=== PATIENT | female | born 1955 | race Caucasian/White ===

== ENCOUNTER 2017-02-01 12:48 | Inpatient (IN) | payer MEDICAID ==
[~2017-02-01] VITALS: Ht 160 cm; Wt 71.3 kg
[2017-02-01] VITALS (12 sets, daily range): BP systolic 73–133; BP diastolic 35–66
[~2017-02-01 12:48] MED LIST: ABILIFY5 MG PO; ACETAMINOPHEN PO; ALBUTEROL2.5 MG/NEB INH; AVPAK AZITHROM250 MG PO; BACTRIM DS 8001 TA1 PO; CARVEDILOL 1212.5 MG PO; CELEXA40 M1 PO; CITALOPRAM20 MG PO; CLINDAMYCIN HC300 MG PO; CLONAZEPAM 1MG T1 MG PO; COZAAR100 MG PO; DIFLUCAN 200MG200 MG PO; DOCUSATE SODIU100 MG PO; FSBS; FSBS SC; FUROSEMIDE 20MG20 MG PO; GABAPENTIN300 MG PO; GLUCAGON EMERGEN1 M1 IJ; GLUTOSE 1515 GM PO; GLUTOSE 1540% PO; HUMULIN 70100 UNITS/ SC; HYDROCHLOROTHIA25 M1 PO; HYDROCODONE1 TABLET PO; HYPOTEARS 15 ML15 M1 OP; IBUPROFEN 600M600 MG PO; INSULIN RE100 UNITS/ SC; LACTULOSE10 GM/15 M PO; LANTUS INS100 UNITS/ SC; LASIX20 MG PO; LEVOTHYROXIN0.025 M3 PO; LOPERAMIDE2 MG PO; LORATADINE 10MG10 M1 PO; LORTAB 500 MG-11 TAB PO; METOPROLOL 25 M25 MG PO; NAPROSYN500 M1 PO; NATURAL VITAM1000 MG PO; NORCO 325 MG-51 TAB PO; NOVOLIN 70/30 710 ML SC; PERCOCET 5/3251 EACH PO; PHENERGAN 25MG.25 M1 PO; PRAVACHOL 40MG40 MG PO; PRAVASTATIN 40M40 MG PO; PREDNISONE 20MG20 MG PO; PREMARIN0.625 MG PO; PRILOSEC20 M1 PO; PRILOSEC20 MG PO; PROAIR HFA0.09 MG/AC IH; PROMETHAZINE HC25 M1 PO; RANITIDINE HCL150 MG PO; RELION NOVOL100 U/M1 IJ; RISPERIDONE0.5 MG PO; ROBAFEN DM COU118 ML PO; ROBAFEN DM473 ML PO; ROBAFEN100 MG/5 M PO; ROBITUSSIN120 ML/BOT PO; SYMBICORT1 AE1 IH; TESSALON PERLE100 MG PO; THERAPEUTIC-M1 TAB PO; TOBRAMYCIN80 MG/2 ML IV; TOPROL XL 25MG25 MG PO; TRAMADOL 50MG T50 M1 PO; TRAZODONE150 MG PO; TYLENOL ES500 M1 PO; VANCOMYCIN 101000 MG IV; VIBRAMYCIN 100100 MG PO; VITAMIN C500 M1 PO; ZITHROMAX Z-PA250 M1 PO; [UNRECOGNIZED DRUG - OTHER] PO
--- NOTE | 2017-02-01 13:14 | Emergency Room Report ---
History of Present Illness Time Seen by [id number] Presenting Problem in Triage Pt arrived: Presenting Problem: Onset of symptoms date/time:/ or onset unknown for: Treatment Prior to Arrival: MATH INTERVENTIONIST Provided by: Sepsis Risk Assessment: Temp: B/P: MAP: Pulse: Resp: Recent fever? Clinical Suspician of Infection? Mental Status: Sepsis Risk: Have you (or family members/close friends) recently traveled outside the [place]? If Yes, where/when: Have you had exposure to infectious disease within the past month? TB? Other? Specify: Source patient, RN notes reviewed Exam Limitations no limitations Comment Pt a resident at [facility] and found obtunded this morning with O2 Sat of 80% . EMS called to transport to ED and pt started on a NRB. In the ED she is obtunded and grunting respirations and not responsive to verbal or tactile stimuli at all. She is running a fever and sound severely congested in both lungs but R>L. She is currently tachypneic,Hypotensive and obtunded but O2 Sat is 99% on NRB. According to her [place] records, she is a DNR and family on their way here. We are doing a septic workup and starting IVF's and Antibiotics now Cardiac Chest Pain Chest pain indicative of cardiac No ALLERGIES Coded Allergies: clarithromycin (Mild, 01/07/16) levofloxacin (Mild, 01/07/16) Influenza Virus Vaccines (-- 01/07/16) egg (01/07/16) Home Medications Reported Medications Lactulose (Lactulose) 20 GM PO DAILYP PRN CONSTIPATION TRAMADOL HCL (Tramadol) 50 MG PO 1600,2100 PRN PAIN INSUL REG 30%ISOPHAN 70% HUMAN (Humulin 70-30 Vial) 5 UNITS SC BID Trazodone Hcl (Trazodone HCl) 150 MG PO QHS ALBUTEROL (Albuterol 0.083% Neb) 2.5 MG INH Q6HP PRN BREATHING Glucagon,Human Recombinant (Glucagon Emergency Kit) 1 MG IJ PRN PRN HYPOGLYCEMIA Citalopram Hydrobromide (Celexa) 40 MG PO QHS Docusate Sodium 250 MG PO QOD OMEPRAZOLE MAGNESIUM (Prilosec 20MG) 20 MG PO BID BUDESONIDE/FORMOTEROL FUMARATE (Symbicort 160-4.5 Mcg Inhaler) 1 PUFF IH BID Ascorbic Acid (Vitamin C) 1,000 MG PO DAILY Dextrose (Glutose 15) 15 GM PO PRN PRN HYPOGLYCEMIA GUAIFENESIN/DEXTROMETHORPHAN (Robafen Dm Cough Liquid) 10 ML PO Q6HP PRN COUGH TRAMADOL HCL (Tramadol) 50 MG PO Q6HP PRN PAIN INSULIN REGULAR, HUMAN (Novolin R) 2 IJ PRN PRN DIABETES Albuterol Sulfate (Proair Hfa) 2 PUFF IH QIDP Clonazepam (Clonazepam 1MG) 0.5 MG PO QHS Aripiprazole (Abilify) 5 MG PO DAILY Gabapentin (Gabapentin 300MG) 300 MG PO TID Carvedilol (Carvedilol 12.5MG) 12.5 MG PO BID MULTIVIT,THER IRON,CA,FA & MIN (Sm Therapeutic M Tablet) 1 TAB PO DAILY LOPERAMIDE HCL (Loperamide) 2 MG PO Q3HP PRN DIARRHEA PROMETHAZINE HCL (Promethazine 25mg Tab) 25 MG PO Q4HP PRN NAUSEA AND VOMITING Acetaminophen (Tylenol Extra-Strength) 500 MG PO QHS PRAVASTATIN SODIUM (Pravastatin Sodium) 40 MG PO QHS LEVOTHYROXINE SOD (Levothyroxine 0.025MG) 0.025 MG PO DAILY History Medical History General CAD? No Angina: Yes [place]: No Hypertension? Yes Hyperlipidemia? Yes CHF? Yes DVT? No PE? No COPD? Yes Asthma? Yes Anemia? No GERD? No Gastric ulcers? No GI Bleed? No Hernia? No Thyroid Problems? No Hypothyroidism? No CVA? Yes Seizures? No Diabetes? Yes Insulin Dependent: No Insulin Pump: No Home FSBS? Yes Renal Insuffiency? No End Stage Renal Disease? No UTI? Yes Stones? Yes BPH? No GB Disease: No Nephritic Syndrome? No Asplenia? No Hepatitis? No Sickle Cell Disease? No Arthritis? No Migraines? No Cataracts? No Glaucoma? No MRSA? No HIV? No TB? No Anxiety? No Depression? No Cancer? Yes Site: CERVIX More? No Immunization Hx DT/Tetanus Unknown Flu Refused Pneumonia Unknown Surgical Hx Previous Surgery?Y FOOT SURGERY [LEFT] TUBAL LIGATION HYSTERECTOMY HIP SURGERY R RIGHT LEG SURGERY Family History Family Hx Diabetes Yes CAD Yes Hypertension Yes Hyperlipidemia Yes Cancer Yes TB No Social History Smoking Hx Packs/day 1 1/2 - 2 Packs Alcohol Alcohol: No Review of Systems All Other Systems Reviewed and Negative Constitutional see HPI Respiratory see HPI Cardiovascular see HPI Psychiatric/Neurological see HPI Physical Exam Vital Signs Vital Signs Date Time Temp Pulse Resp B/P Pulse O2 O2 Flow FiO2 Ox Delivery Rate 02/01 1406 95 25 86/39 100 02/01 1339 93 25 81/74 100 02/01 1328 96 26 80/36 100 02/01 1300 40 02/01 1249 100.0 100 36 85/66 98 15 General Appearance severe distress Eye Exam - bilateral eye PERRL Ear, Nose, Throat normal ENT inspection Neck supple Respiratory Status Yes: respiratory distress. Lung Sounds bilateral: rales, rhonchi, wheezing. Cardiovascular regular rate/rhythm Peripheral Pulses Pulses normal No (very weak) Neurologic obtunded Medical Decision Making LABS/Meds/Orders Pt receiving controlled substance in ED? No Results/Orders Laboratory Tests 02/01/17 1309: Lactic Acid 4.5 H 02/01/17 1309: Sodium 125 L, Potassium 7.8 *H, Chloride 84 L, Carbon Dioxide 11 L, BUN 50 H , Creatinine 3.0 H, Estimated Creat Clear 21 L, Estimated GFR (MDRD) 16 *L, Glucose 1257 *H, Calcium 8.1 L, Total Bilirubin 0.7, AST 18, ALT 19, Alkaline Phosphatase 214 H, Creatine Kinase 25 L, CK-MB (CK-2) Rel Index 2.0, CK and CKMB Interp < 0.5, Troponin I < 0.02, Total Protein 6.2 L, Albumin 2.2 L, Globulin 4.0 H, Albumin/Globulin Ratio 0.6 L, WBC 14.8 H, RBC 3.00 L, Hgb 9.3 L, Hct 35.2 L, MCV 117.3 H, RDW 13.7, Plt Count 483 H, MPV 8.2, Gran % 93.2 H, Gran # 13.8 H, Total Counted Pending, Lymphocytes % 4.4 L, Monocytes % 2.0, Eosinophils % 0.1, Basophils % 0.4, Neutrophils Pending, Lymphocytes ( Manual) Pending, Lymphocytes # 0.7, Monocytes # 0.3, Eosinophils # 0.0, Basophils # 0.1, Platelet Estimate Pending, PUBS MCHC 26.2 L, MCH 30.7 02/01/17 1307: Lactic Acid Cancelled 02/01/17 1300: Urine Color YELLOW, Urine Appearance SL CLOUDY, Urine pH 6.0, Ur Specific [place] <= 1.005, Urine Protein NEGATIVE, Urine Ketones 3+ H, Urine Blood 1+ H , Urine Nitrate NEGATIVE, Urine Bilirubin NEGATIVE, Urine Urobilinogen 0.2, Ur Leukocyte Esterase 2+ H, Urine RBC OCC, Urine WBC 10-20, Ur Squamous Epith Cells 5-10, Urine Renal Cells 10-20, Urine Bacteria 4+, Urine Glucose 3+ H 02/01/17 1255: ABG pH 7.16 *L, ABG pCO2 (Temp Corrct 20.5 L, ABG pO2 (Temp Correct 142.7 H, ABG HCO3 7.1 L, ABG Total CO2 7.7 L, ABG O2 Sat (Calculated) 98, ABG Base Excess -21.7 L, Ian Test NON APPLICABLE, Blood Gas Comments RIGHT FEMORAL Current Medication Orders Sig/Teresa Start time Last Medication Dose Route Stop Time Status Admin Insulin Human Regular 100 UNITS .Q10H 02/01 1415 AC Sodium Chloride 100 ML IV Insulin Human Regular 10 UNITS ONCE ONE 02/01 1415 AC IVP 02/01 1416 Insulin Human Regular 0 .STK-MED ONE 02/01 1407 DC .ROUTE Sodium Chloride 50 ML .STK-MED ONE 02/01 1337 DC IV Sodium Chloride 50 ML .STK-MED ONE 02/01 1336 DC IV Piperacillin Sod/ 0 .STK-MED ONE 02/01 1335 DCr Tazobactam Sod .ROUTE Miscellaneous 1 EACH CONSULT PHARMACY 02/01 1315 AC Information * 02/02 0115 Piperacillin Sod/ 3.375 GM ONCE ONE 02/01 1315 DCr 02/01 Tazobactam Sod IV 02/01 1344 1344 Sodium Chloride 50 ML Sodium Chloride 1,000 ML .Q1H1M 02/01 1315 CAN IV 02/01 1415 Sodium Chloride 10 ML PRN PRN 02/01 1315 DC IV 02/02 1306 Sodium Chloride 1,000 ML .Q1H1M 02/01 1315 AC 02/01 IV 02/01 1415 1330 Sodium Chloride 10 ML PRN PRN 02/01 1315 AC IV 02/02 1306 Sodium Chloride 1,000 ML .Q1H1M 02/01 1315 AC /12 IV 02/01 1415 1330 Sodium Chloride 10 ML PRN PRN 02/01 1315 AC IV 02/02 1307 Sodium Chloride 1,000 ML .Q1H1M 02/01 1315 AC 05/12 IV 02/01 1415 1330 Sodium Chloride 10 ML PRN PRN 02/01 1315 AC IV 02/02 1308 Sodium Chloride 10 ML PRN PRN 02/01 1300 AC IV 02/02 1256 Orders Procedure Date/time Status BIPAP-INITIAL SETUP 02/01 1404 Complete RT BIPAP, Initial Setup/Change 02/01 1404 Active RT BIPAP, Monitor/Maintain 02/01 1404 Active LACTIC ACID FOLLOW UP 02/01 1346 Active DIFFERENTIAL-WBC 02/01 1309 Active ARTERIAL BLOOD GAS REQUEST 02/01 1307 Active IV SALINE LOCK 02/01 1307 Active CULTURE, BLOOD 02/01 1307 Active CULTURE, BLOOD 02/01 1305 Active CHEST-PORTABLE 02/01 1304 Active IV SALINE LOCK 02/01 1304 Active URINALYSIS/COMPLETE 02/01 1304 Complete LACTIC ACID 02/01 1304 Complete CBC WITH AUTO DIFF 02/01 1304 Active CARDIAC ENZYMES 02/01 1304 Complete CHEM 12 PROFILE 02/01 1304 Complete CULTURE, URINE 02/01 1300 Active Departure Departure Time of Disposition 1411 Disposition Still a Patient Clinical Impression Primary Impression: Diabetic ketoacidosis Qualifiers: Diabetes mellitus type: type 2 Diabetes mellitus complication detail: with coma Qualified Code: E13.11 - Other specified diabetes mellitus with ketoacidosis with coma Secondary Impressions: Acute respiratory failure Qualifiers: Respiratory failure complication: unspecified whether with hypoxia or hypercapnia Qualified Code: J96.00 - Acute respiratory failure, unspecified whether with hypoxia or hypercapnia Cystitis without hematuria Sepsis Condition STABLE Referrals Chelsae CAMARILLO,Macho Lovett (Family) Additional Instructions Being admitted to Acute Bed by Dr. hinson Discharge Counseling Counseled pt/family regarding diagnosis, test results, medications/RX, follow up needs ED Critical Care Critical Care Yes Time spent 30-74 min Vital system(s) involved: Circulatory Failure, Metabolic Failure I was present at bedside for Coordinating pt's care, During my initial exam, Reviewing lab results, Discussing pt condition, For re-examinations, Examining radiographs If Critical Care minutes are documented, the time involved in the performance of seperately reportable procedures was not counted toward critical care time documented. I directly delivered medical care to this critically ill and/or injured patient. Timely evaluation and treatment was necessary to address the significant organ system(s) dysfunction present in this patient. at [phone]
[2017-02-01 13:26] LABS: URINE BILIRUBIN - DIPSTICK NEGATIVE (NEG); URINE BLOOD 1+ (NEG)
[2017-02-01 13:28] LABS: LYMPH # 0.7 K/mm3 (0.7-4.5); LYMPH % 4.4 % (10-50.0)
[2017-02-01 13:36] LABS: ALLEN'S TEST NON APPLICABLE; ARTERIAL ABE -21.7 MMOL/L (-2.4-+2.3); ARTERIAL PO2 142.7 MMHG (80-100); ARTERIAL TCO2 7.7 MMOL/L (23-27); OXYGEN 100
[2017-02-01 13:38] LABS: HEMOGLOBIN 9.3 g/dL (12.2-16.2)
[2017-02-01 13:57] LABS: BUN 50 mg/dL (7-18)
[2017-02-01 13:59] LABS: GFR (ESTIMATED) 16 ML/MIN (59-)
[2017-02-01 14:14] LABS: NEUTROPHILS 97 % (42-76)
--- NOTE | 2017-02-01 14:57 | CONSULT NOTE ---
Pharmacokinetic Consult Date of consult: 02/01/17 Time of consult: 1450 Referring provider: DR. DENTON Reason for consult: VANCOMYCIN DOSING Allergies: Coded Allergies: clarithromycin (Mild, 01/07/16) levofloxacin (Mild, 01/07/16) Influenza Virus Vaccines (-- 01/07/16) egg (01/07/16) Home Medications: Reported Medications Lactulose (Lactulose) 20 GM PO DAILYP PRN CONSTIPATION TRAMADOL HCL (Tramadol) 50 MG PO 1600,2100 PRN PAIN INSUL REG 30%ISOPHAN 70% HUMAN (Humulin 70-30 Vial) 5 UNITS SC BID Trazodone Hcl (Trazodone HCl) 150 MG PO QHS ALBUTEROL (Albuterol 0.083% Neb) 2.5 MG INH Q6HP PRN BREATHING Glucagon,Human Recombinant (Glucagon Emergency Kit) 1 MG IJ PRN PRN HYPOGLYCEMIA Citalopram Hydrobromide (Celexa) 40 MG PO QHS Docusate Sodium 250 MG PO QOD OMEPRAZOLE MAGNESIUM (Prilosec 20MG) 20 MG PO BID BUDESONIDE/FORMOTEROL FUMARATE (Symbicort 160-4.5 Mcg Inhaler) 1 PUFF IH BID Ascorbic Acid (Vitamin C) 1,000 MG PO DAILY Dextrose (Glutose 15) 15 GM PO PRN PRN HYPOGLYCEMIA GUAIFENESIN/DEXTROMETHORPHAN (Robafen Dm Cough Liquid) 10 ML PO Q6HP PRN COUGH TRAMADOL HCL (Tramadol) 50 MG PO Q6HP PRN PAIN INSULIN REGULAR, HUMAN (Novolin R) 2 IJ PRN PRN DIABETES Albuterol Sulfate (Proair Hfa) 2 PUFF IH QIDP Clonazepam (Clonazepam 1MG) 0.5 MG PO QHS Aripiprazole (Abilify) 5 MG PO DAILY Gabapentin (Gabapentin 300MG) 300 MG PO TID Carvedilol (Carvedilol 12.5MG) 12.5 MG PO BID MULTIVIT,THER IRON,CA,FA & MIN (Sm Therapeutic M Tablet) 1 TAB PO DAILY LOPERAMIDE HCL (Loperamide) 2 MG PO Q3HP PRN DIARRHEA PROMETHAZINE HCL (Promethazine 25mg Tab) 25 MG PO Q4HP PRN NAUSEA AND VOMITING Acetaminophen (Tylenol Extra-Strength) 500 MG PO QHS PRAVASTATIN SODIUM (Pravastatin Sodium) 40 MG PO QHS LEVOTHYROXINE SOD (Levothyroxine 0.025MG) 0.025 MG PO DAILY Height (feet): 5 Height (inches): 5.00 Medical History: CAD? No Angina: Yes [place]: No Hypertension? Yes Hyperlipidemia? Yes CHF? Yes DVT? No PE? No COPD? Yes Asthma? Yes Anemia? No GERD? No Gastric ulcers? No GI Bleed? No Hernia? No Thyroid Problems? No Hypothyroidism? No CVA? Yes Seizures? No Diabetes? Yes Insulin Dependent: Yes Insulin Pump: No Home FSBS? Yes Renal Insuffiency? No UTI? Yes Stones? Yes BPH? No GB Disease: No Nephritic Syndrome? No Asplenia? No Hepatitis? No Sickle Cell Disease? No Arthritis? No Migraines? No Cataracts? No Glaucoma? No MRSA? No HIV? No TB? No Anxiety? No Depression? No Cancer? Yes Site: CERVIX More? No Labs: Laboratory Tests 02/01/17 1309: Lactic Acid 4.5 H 02/01/17 1309: Sodium 125 L, Potassium 7.8 *H, Chloride 84 L, Carbon Dioxide 11 L, BUN 50 H , Creatinine 3.0 H, Estimated Creat Clear 21 L, Estimated GFR (MDRD) 16 *L, Glucose 1257 *H, Calcium 8.1 L, Total Bilirubin 0.7, AST 18, ALT 19, Alkaline Phosphatase 214 H, Creatine Kinase 25 L, CK-MB (CK-2) Rel Index 2.0, CK and CKMB Interp < 0.5, Troponin I < 0.02, Total Protein 6.2 L, Albumin 2.2 L, Globulin 4.0 H, Albumin/Globulin Ratio 0.6 L, WBC 14.8 H, RBC 3.00 L, Hgb 9.3 L, Hct 35.2 L, MCV 117.3 H, RDW 13.7, Plt Count 483 H, MPV 8.2, Gran % 93.2 H, Gran # 13.8 H, Total Counted 100, Lymphocytes % 4.4 L, Monocytes % 2.0, Eosinophils % 0.1, Basophils % 0.4, Neutrophils 97 H, Lymphocytes (Manual) 3 L, Lymphocytes # 0.7, Monocytes # 0.3, Eosinophils # 0.0, Basophils # 0.1, RBC/WBC/PLT Morphology NORMAL, Platelet Estimate MARKED INCREASE, PUBS MCHC 26.2 L, MCH 30.7 02/01/17 1300: Urine Color YELLOW, Urine Appearance SL CLOUDY, Urine pH 6.0, Ur Specific [place] <= 1.005, Urine Protein NEGATIVE, Urine Ketones 3+ H, Urine Blood 1+ H , Urine Nitrate NEGATIVE, Urine Bilirubin NEGATIVE, Urine Urobilinogen 0.2, Ur Leukocyte Esterase 2+ H, Urine RBC OCC, Urine WBC 10-20, Ur Squamous Epith Cells 5-10, Urine Renal Cells 10-20, Urine Bacteria 4+, Urine Glucose 3+ H 02/01/17 1255: ABG pH 7.16 *L, ABG pCO2 (Temp Corrct 20.5 L, ABG pO2 (Temp Correct 142.7 H, ABG HCO3 7.1 L, ABG Total CO2 7.7 L, ABG O2 Sat (Calculated) 98, ABG Base Excess -21.7 L, Ian Test NON APPLICABLE, Blood Gas Comments RIGHT FEMORAL Microbiology 02/01 1309 BLOOD: Anaerobic Blood Culture - RECD 02/01 1309 BLOOD: Aerobic Blood Culture - RECD 02/01 1309 BLOOD: Anaerobic Blood Culture - RECD 02/01 1309 BLOOD: Aerobic Blood Culture - RECD 02/01 1300 URINE CATH: Urine Culture - RECD Problem List: 1. Sepsis Plan: BASED ON PATIENT FACTORS, RECOMMEND VANCOMYCIN 1250 MG IV Q48H. PHARMACY WILL FOLLOW DAILY AND ADJUST APPROPRIATE. at [phone]
[2017-02-01 20:11] LABS: HEMOGLOBIN 8.2 g/dL (12.2-16.2)
[2017-02-02] VITALS (31 sets, daily range): BP systolic 89–143; BP diastolic 37–82
[2017-02-02 00:39] LABS: ABO BLOOD TYPE O; ANTIHUMAN GLOB CROSSMATCH COMPAT; RH BLOOD TYPE POSITIVE
[2017-02-02 00:40] LABS: ANTIHUMAN GLOB CROSSMATCH COMPAT
[2017-02-02] MEDS ORDERED: ACETAMINOPHEN500 M3 PO (01:31)
[2017-02-02] MEDS ORDERED: GLUTOSE 1515 GM PO (01:33)
[2017-02-02] MEDS ORDERED: PROMETHAZINE HC25 M1 PO (01:40)
[2017-02-02] MEDS ORDERED: APAP/OXYCODONE1 TA1 PO (01:44)
--- NOTE | 2017-02-02 06:45 | RADIOLOGY REPORT PS360 ---
CHEST-PORTABLE Ordering Physician: Macho Tran MD Patient Age: 61 years: Female HISTORY: SOA TECHNIQUE: AP portable semierect,/erect right chest COMPARISON January 19, 2017 and January 07, 2016 CXR FINDINGS Peripheral lung rivera appear clear with nothing definitely acute. No discrete focal pneumonia. Only question some accentuation markings at the right suprahilar region most likely due to overlapping right first rib and and similar to previous December 2015 CXR.. If respiratory symptoms progress follow-up chest film PA and lateral suggested. Heart appears upper normal in size. No CHF no pleural effusions no pneumothorax. Chest wall unremarkable. Slight motion limits the study. IMPRESSION: Nothing definitely acute Upper normal markings right suprahilar region If symptoms progress consider follow-up PA and lateral
--- NOTE | 2017-02-02 07:59 | HISTORY AND PHYSICAL REPORT ---
Demographics: Admit date: 02/01/17 Chief complaint: altered mental status PRIMARY DIAGNOSIS: DKA Allergies: Coded Allergies: clarithromycin (Mild, 01/07/16) levofloxacin (Mild, 01/07/16) Influenza Virus Vaccines (-- 01/07/16) egg (01/07/16) History of present illness: History of present illness: wf sent from [facility] for altered mental status - she has sig hx of recently having pelvic fx and has iddm - she was found in the [facility] ed to have dka and hyperkalemia - she is a dnr also- she was admitted to icu with insulin drip per standing orders- Past medical history: Family HX Diabetes Yes CAD Yes Hypertension Yes Hyperlipidemia Yes Cancer Yes TB No Immunization HX DT/Tetanus Unknown Flu Refused Pneumonia Unknown TB Test in last year Yes Result Unknown General CAD? No Angina: Yes [place]: No Hypertension? Yes Hyperlipidemia? Yes CHF? Yes DVT? No PE? No COPD? Yes Asthma? Yes Anemia? No GERD? No Gastric ulcers? No GI Bleed? No Hernia? No Thyroid Problems? No Hypothyroidism? No CVA? Yes Seizures? No Diabetes? Yes Insulin Dependent: Yes Insulin Pump: No Home FSBS? Yes Renal Insuffiency? No UTI? Yes Stones? Yes BPH? No GB Disease: No Nephritic Syndrome? No Asplenia? No Hepatitis? No Sickle Cell Disease? No Arthritis? No Migraines? No Cataracts? No Glaucoma? No MRSA? No HIV? No TB? No Anxiety? No Depression? No Cancer? Yes Site: CERVIX More? No Past Surgical HX Previous Surgery?Y FOOT SURGERY [LEFT] TUBAL LIGATION HYSTERECTOMY HIP SURGERY R RIGHT LEG SURGERY Current home meds: Reported Medications Lactulose (Lactulose) 20 GM PO DAILYP PRN CONSTIPATION INSUL REG 30%ISOPHAN 70% HUMAN (Humulin 70-30 Vial) 5 UNITS SC BID Trazodone Hcl (Trazodone HCl) 150 MG PO QHS Citalopram Hydrobromide (Celexa) 40 MG PO QHS Docusate Sodium 250 MG PO QOD OMEPRAZOLE MAGNESIUM (Prilosec 20MG) 20 MG PO BID BUDESONIDE/FORMOTEROL FUMARATE (Symbicort 160-4.5 Mcg Inhaler) 1 PUFF IH BID Ascorbic Acid (Vitamin C) 1,000 MG PO DAILY GUAIFENESIN/DEXTROMETHORPHAN (Robafen Dm Cough Liquid) 10 ML PO Q6HP PRN COUGH INSULIN REGULAR, HUMAN (Novolin R) 2 IJ PRN PRN DIABETES Albuterol Sulfate (Proair Hfa) 2 PUFF IH QIDP Aripiprazole (Abilify) 5 MG PO DAILY Gabapentin (Gabapentin 300MG) 300 MG PO TID Carvedilol (Carvedilol 12.5MG) 12.5 MG PO BID MULTIVIT,THER IRON,CA,FA & MIN (Sm Therapeutic M Tablet) 1 TAB PO DAILY LOPERAMIDE HCL (Loperamide) 2 MG PO Q3HP PRN DIARRHEA Acetaminophen (Tylenol Extra-Strength) 500 MG PO QHS PRAVASTATIN SODIUM (Pravastatin Sodium) 40 MG PO QHS LEVOTHYROXINE SOD (Levothyroxine 0.025MG) 0.025 MG PO DAILY Clonazepam (Clonazepam 1MG) 0.5 MG PO BID Acetaminophen (Acetaminophen Extra Strength) 500 MG PO Q6HP PRN PAIN/FEVER Dextrose (Glutose 15) 15 GM PO PRN PRN DIABETES PROMETHAZINE HCL (Promethazine 25mg Tab) 25 MG PO Q4HP PRN N/V OXYCODONE 5MG/[id number] (Oxycodone-Acetaminophen 5-325) 1 TAB PO Q4HP PRN PAIN Social Hx: Smoking HX Tobacco No Packs/day 1 1/2 - 2 PACKS Are you/the child exposed to second-hand smoke: No Alcohol Alcohol: No Hx of Drug Use Drug Use? No Patien't marital status is Patient's support system is good Review of systems: Constitutional see HPI, fever, weakness. Eyes No: inflammation. Ears, Nose, Mouth, Throat No ear discharge, No epistaxis Respiratory see HPI, shortness of breath. Cardiovascular No syncope Gastrointestinal/Abdominal see HPI, No diarrhea, nausea, poor appetite, poor fluid intake, vomiting Genitourinary No: hematuria. Musculoskeletal No: joint swelling. Skin No: rash. Neurological Yes: see HPI. No: seizure disorder. Psychiatric No: no symptoms reported. Exam: Lab data for last 24 hours: Laboratory Tests 02/02/17 0650: POC Glucose 310 *H 02/02/17 0607: POC Glucose 190 H 02/02/17 0550: Sodium 140, Potassium 4.8, Chloride 105, Carbon Dioxide 25, BUN 65 H, Creatinine 2.7 H, Estimated Creat Clear 24 L, Estimated GFR (MDRD) 18 *L, Glucose 185 H, Calcium 7.6 L, Acetone Level SMALL 02/02/17 0506: POC Glucose 124 H 02/02/17 0437: POC Glucose 83 02/02/17 0346: POC Glucose 119 H 02/02/17 0230: POC Glucose 214 H 02/02/17 0144: POC Glucose 218 H 02/02/17 0042: POC Glucose 286 H 02/01/17 2326: POC Glucose 389 *H 02/01/17 2310: Antibody Screen NEGATIVE, Miscellaneous Test POSITIVE 02/01/170: POC Glucose 474 *H 02/01/170: Glucose 510 *H 02/01/170: Sodium 137, Potassium 3.9, Chloride 100, Carbon Dioxide 21 L, BUN 66 H, Creatinine 3.0 H, Estimated Creat Clear 21 L, Estimated GFR (MDRD) 16 *L, Glucose 513 *H, Calcium 7.1 L 02/01/172031: POC Glucose >550 *H 02/01/17 2020: Glucose 572 *H 02/01/17 2001: Hgb 8.2 L, Hct 27.2 L 02/01/17 1957: POC Glucose >550 *H 02/01/17 1800: Glucose 734 *H, Acetone Level LARGE 02/01/17 1700: Lactic Acid 4.8 H 02/01/17 1700: Glucose 830 *H 02/01/17 1309: Lactic Acid 4.5 H 02/01/17 1309: Sodium 125 L, Potassium 7.8 *H, Chloride 84 L, Carbon Dioxide 11 L, BUN 50 H , Creatinine 3.0 H, Estimated Creat Clear 21 L, Estimated GFR (MDRD) 16 *L, Glucose 1257 *H, Calcium 8.1 L, Total Bilirubin 0.7, AST 18, ALT 19, Alkaline Phosphatase 214 H, Creatine Kinase 25 L, CK-MB (CK-2) Rel Index 2.0, CK and CKMB Interp < 0.5, Troponin I < 0.02, Total Protein 6.2 L, Albumin 2.2 L, Globulin 4.0 H, Albumin/Globulin Ratio 0.6 L, WBC 14.8 H, RBC 3.00 L, Hgb 9.3 L, Hct 35.2 L, MCV 117.3 H, RDW 13.7, Plt Count 483 H, MPV 8.2, Gran % 93.2 H, Gran # 13.8 H, Total Counted 100, Lymphocytes % 4.4 L, Monocytes % 2.0, Eosinophils % 0.1, Basophils % 0.4, Neutrophils 97 H, Lymphocytes (Manual) 3 L, Lymphocytes # 0.7, Monocytes # 0.3, Eosinophils # 0.0, Basophils # 0.1, RBC/WBC/PLT Morphology NORMAL, Platelet Estimate MARKED INCREASE, PUBS MCHC 26.2 L, MCH 30.7 02/01/17 1300: Urine Color YELLOW, Urine Appearance SL CLOUDY, Urine pH 6.0, Ur Specific [place] <= 1.005, Urine Protein NEGATIVE, Urine Ketones 3+ H, Urine Blood 1+ H , Urine Nitrate NEGATIVE, Urine Bilirubin NEGATIVE, Urine Urobilinogen 0.2, Ur Leukocyte Esterase 2+ H, Urine RBC OCC, Urine WBC 10-20, Ur Squamous Epith Cells 5-10, Urine Renal Cells 10-20, Urine Bacteria 4+, Urine Glucose 3+ H 02/01/17 1255: ABG pH 7.16 *L, ABG pCO2 (Temp Corrct 20.5 L, ABG pO2 (Temp Correct 142.7 H, ABG HCO3 7.1 L, ABG Total CO2 7.7 L, ABG O2 Sat (Calculated) 98, ABG Base Excess -21.7 L, Ian Test NON APPLICABLE, Blood Gas Comments RIGHT FEMORAL Microbiology 02/01 1309 BLOOD: Anaerobic Blood Culture - RECD 02/01 1309 BLOOD: Aerobic Blood Culture - RECD 02/01 1309 BLOOD: Anaerobic Blood Culture - RECD 02/01 1309 BLOOD: Aerobic Blood Culture - RECD 02/01 1300 URINE CATH: Urine Culture - RECD 02/01 1300 SPUTUM: Sputum Culture - RES 02/01 1300 SPUTUM: Gram Stain - RES Admission vital signs: 1ST Vital Signs Result Date Time Pulse Ox 98 02/01 1249 B/P 85/66 02/01 1249 O2 Flow Rate 15 02/01 1249 Temp 100.0 02/01 1249 Pulse 100 02/01 1249 Resp 36 02/01 1249 O2 Delivery OXYGEN 02/01 1834 Exam General appearance: obtunded Eyes: anicteric, PERRLA ENT: dry mucous membranes Neck: no JVD Cardiovascular: regular rate & rhythm Respiratory: diminished breath sounds ABD: soft Genitourinary: catheter in place Extremities: edema Musculoskeletal: no swollen jts Skin: no rash Neuro: no focal deficit, no focal def or posturing Additional information: pr with ng tube as she had episode of ugi bleed Plan: Problem List 1. Diabetic ketoacidosis 2. Diabetes 3. Altered mental status 4. Acute upper GI bleed 5. Tobacco use 6. Renal insufficiency 7. Acute hyperkalemia 8. Anemia Plan: will transfuse if h/h below 8 and will continue dka standing orders - did talk with sister who understood grave nature of illness and she affirmed dnr status at 0756
[2017-02-02 08:47] LABS: LYMPH # 1.7 K/mm3 (0.7-4.5); LYMPH % 10.7 % (10-50.0)
[2017-02-02 08:48] LABS: HEMOGLOBIN 7.3 g/dL (12.2-16.2)
--- NOTE | 2017-02-02 09:29 | PHARMACY CLINIC NOTE ---
Patient Demographics Patient Demographics Admission date: 02/01/17 Date: 02/02/17 Time: 0928 Allergies Coded Allergies: clarithromycin (Mild, 01/07/16) levofloxacin (Mild, 01/07/16) Influenza Virus Vaccines (-- 01/07/16) egg (01/07/16) HEIGHT- FT: 5 IN: 3.00 K.607 VTE General Information Labs: Laboratory Tests 02/02 1309 Hematology Hgb (12.2 - 16.2 g/dL) 7.3 *L 8.2 L 9.3 L Hct (37.0 - 47.0 %) 21.4 *L 27.2 L 35.2 L Plt Count (142 - 424 K/mm3) 248 483 H Disclaimer The following section includes nursing documentation that has been pulled in for pharmacy review. Patient's VTE score: 4 Patient's VTE Risk: LOW RISK Clinical trial participant? No VTE prophylaxis [id number] VTE prophylaxis ordered? Yes Type of prophylaxis/treatment: NICOLE at 0928
[2017-02-02 18:02] LABS: HEMOGLOBIN 9.8 g/dL (12.2-16.2)
[2017-02-03] VITALS (11 sets, daily range): BP systolic 91–150; BP diastolic 43–95
--- NOTE | 2017-02-03 07:17 | RADIOLOGY REPORT PS360 ---
CHEST-PORTABLE COMPARISON: Portable upright chest 02/01/2017 HISTORY: NG tube placement TECHNIQUE: Portable upright chest FINDINGS: The lung rivera are fairly well-expanded and appear clear of infiltrate. Cardiac size is upper limits of normal however the vascularity is normal. Is an NG tube seen ascending the esophagus with the tip up against the greater curvature of the stomach. There are monitor lines overlying the chest. IMPRESSION: Satisfactory position of NG tube
--- NOTE | 2017-02-03 07:30 | ACUTE CARE PROGRESS NOTE (QUA) ---
Progress Notes Subjective Date 02/03/17 Time 0728 Note doing better Patient/family reports: no complaints Nursing reports: no complaints Objective Findings Last VS-Temp:99.3 B/P:150/84 Pulse:104 Resp:20 SaO2:98 OXYGEN Last weight lbs:154 oz:1 K.882 Method:Bed Scales Exam General appearance: awake Eyes: PERRLA ENT: dry mucous membranes Neck: no JVD Cardiovascular: regular rate & rhythm Respiratory: no respiratory distress ABD: soft Genitourinary: catheter in place Extremities: edema Musculoskeletal: no change Skin: dry Neuro: no focal deficit Reviewed: allergies, medications, vital signs, lab results Assessment/Plan Problem List 1. Diabetic ketoacidosis 2. Diabetes 3. Altered mental status 4. Acute upper GI bleed 5. Tobacco use 6. Renal insufficiency 7. Acute hyperkalemia 8. Anemia Patient condition Improving Plan: continue current care This inpt stay is expected to cross 2 MNs from start of care Yes Comments: slow but steady improvement at 0841
[2017-02-04] VITALS (9 sets, daily range): BP systolic 108–156; BP diastolic 58–90
[2017-02-04 05:27] LABS: HEMOGLOBIN 9.6 g/dL (12.2-16.2); LYMPH # 1.8 K/mm3 (0.7-4.5); LYMPH % 16.8 % (10-50.0)
--- NOTE | 2017-02-04 12:43 | ACUTE CARE PROGRESS NOTE (QUA) ---
Progress Notes Subjective Date 02/04/17 Time 1236 Note doin better Patient/family reports: feeling better Nursing reports: alert Objective Findings Last VS-Temp:98.3 B/P:152/83 Pulse:88 Resp:20 SaO2:100 OXYGEN Last weight lbs:157 oz:3 K.299 Method:Bed Scales Exam General appearance: awake Eyes: PERRLA ENT: dry mucous membranes Neck: non-tender Cardiovascular: regular rate & rhythm, murmur Respiratory: no respiratory distress ABD: soft Genitourinary: no hematuria Extremities: no acute changes Musculoskeletal: improved m/s Skin: dry Neuro: no focal deficit Reviewed: allergies, medications, vital signs, lab results, radiology report Assessment/Plan Problem List 1. Diabetic ketoacidosis 2. Diabetes 3. Altered mental status 4. Acute upper GI bleed 5. Tobacco use 6. Renal insufficiency 7. Acute hyperkalemia 8. Anemia Patient condition Improving Plan: initiate discharge plan This inpt stay is expected to cross 2 MNs from start of care Yes Comments: will transfer to [facility] and follow Antibiotic Stewardship (2) Current Culture Results Microbiology 02/01 1309 BLOOD: Anaerobic Blood Culture - RES 02/01 1309 BLOOD: Aerobic Blood Culture - RES 02/01 1300 URINE CATH: Urine Culture - COMP ESCHERICHIA COLI 02/01 1300 SPUTUM: Sputum Culture - RES 02/01 1300 SPUTUM: Gram Stain - RES Infxn that will respond? Yes Right drug,dose,and route? Yes More targeted antbx? No How long atbx needed? 7 Comment: will continue meds at [facility] at 1242
--- NOTE | 2017-02-04 12:43 | ACUTE CARE PROGRESS NOTE (QUA) ---
Progress Notes Subjective Date 02/04/17 Time 1236 Note doin better Patient/family reports: feeling better Nursing reports: alert Objective Findings Last VS-Temp:98.3 B/P:152/83 Pulse:88 Resp:20 SaO2:100 OXYGEN Last weight lbs:157 oz:3 K.299 Method:Bed Scales Exam General appearance: awake Eyes: PERRLA ENT: dry mucous membranes Neck: non-tender Cardiovascular: regular rate & rhythm, murmur Respiratory: no respiratory distress ABD: soft Genitourinary: no hematuria Extremities: no acute changes Musculoskeletal: improved m/s Skin: dry Neuro: no focal deficit Reviewed: allergies, medications, vital signs, lab results, radiology report Assessment/Plan Problem List 1. Diabetic ketoacidosis 2. Diabetes 3. Altered mental status 4. Acute upper GI bleed 5. Tobacco use 6. Renal insufficiency 7. Acute hyperkalemia 8. Anemia Patient condition Improving Plan: initiate discharge plan This inpt stay is expected to cross 2 MNs from start of care Yes Comments: will transfer to [facility] and follow Antibiotic Stewardship (2) Current Culture Results Microbiology 02/01 1309 BLOOD: Anaerobic Blood Culture - RES 02/01 1309 BLOOD: Aerobic Blood Culture - RES 02/01 1300 URINE CATH: Urine Culture - COMP ESCHERICHIA COLI 02/01 1300 SPUTUM: Sputum Culture - RES 02/01 1300 SPUTUM: Gram Stain - RES Infxn that will respond? Yes Right drug,dose,and route? Yes More targeted antbx? No How long atbx needed? 7 Comment: will continue meds at [facility] at 1242
--- NOTE | 2017-02-04 12:46 | DISCHARGE SUMMARY STANDARD ---
Demographics Admit date: 02/01/17 Discharge date: 02/04/17 History of present illness History of present illness wf sent from f for altered mental status - she has sig hx of recently having pelvic fx and has iddm - she was found in the [facility] ed to have dka and hyperkalemia - she is a dnr also- she was admitted to icu with insulin drip per standing orders- Hospital Course Hospital Course: pt did well with ivf and insulin and slowly improved with neg ketones and she has episode of upper gi bleeding but after transfusion has well - today more alert and more like baseline Discharge diagnoses Problem List 1. Diabetic ketoacidosis 2. Diabetes 3. Altered mental status 4. Acute upper GI bleed 5. Tobacco use 6. Renal insufficiency 7. Acute hyperkalemia 8. Anemia 9. UTI (urinary tract infection) Medications Medications: Discharge meds are as noted. Comment: will use rocephen 1 g im daily x 1 week Follow up Follow up in office in: 7 DAYS with: Kedar Carrillo Comment: will use fluids and abx at [facility] - at [id number]
--- NOTE | 2017-02-04 12:46 | DISCHARGE SUMMARY STANDARD ---
Demographics Admit date: 02/01/17 Discharge date: 02/04/17 History of present illness History of present illness wf sent from f for altered mental status - she has sig hx of recently having pelvic fx and has iddm - she was found in the [facility] ed to have dka and hyperkalemia - she is a dnr also- she was admitted to icu with insulin drip per standing orders- Hospital Course Hospital Course: pt did well with ivf and insulin and slowly improved with neg ketones and she has episode of upper gi bleeding but after transfusion has well - today more alert and more like baseline Discharge diagnoses Problem List 1. Diabetic ketoacidosis 2. Diabetes 3. Altered mental status 4. Acute upper GI bleed 5. Tobacco use 6. Renal insufficiency 7. Acute hyperkalemia 8. Anemia 9. UTI (urinary tract infection) Medications Medications: Discharge meds are as noted. Comment: will use rocephen 1 g im daily x 1 week Follow up Follow up in office in: 7 DAYS with: Kedar Carrillo Comment: will use fluids and abx at [facility] - at [id number]
== END 2017-02-04 16:00 | DRG 638 ==
LOC: ER 12:48 → ICU 14:21 → ER 14:21 → 2ND 15:53 → ICU 15:53 → 2ND 02-02 18:48
PROVIDERS: Emergency Medicine; General Practice; Internal Medicine Adolescent Medicine
DX: E13.10 Other specified diabetes mellitus with ketoacidosis without coma (principal); N39.0 Urinary tract infection, site not specified; K92.2 Gastrointestinal hemorrhage, unspecified; I10 Essential (primary) hypertension; Z79.4 Long term (current) use of insulin; E87.5 Hyperkalemia; D64.9 Anemia, unspecified
CPT/HCPCS: J2405; J2543; J3370; P9016